=== PATIENT | male | born 1995 | race Caucasian/White ===

== ENCOUNTER 2018-12-03 20:25 | Emergency (ER) | payer OTHER ==
[~2018-12-03] VITALS: Ht 180.3 cm; Wt 62.1 kg
[~2018-12-03 20:25] MED LIST: MOBIC15 MG PO; TESSALON PERLE100 MG PO
[2018-12-03] MEDS ORDERED: DAY TIME SOFTG1 EACH PO (20:34)
[2018-12-03] MEDS ORDERED: PREDNISONE 20 M20 MG PO (21:45)
[2018-12-03] MEDS ORDERED: TESSALON PERLE100 MG PO (21:45)
[2018-12-04 02:21] VITALS: BP 132/67
== END 2018-12-03 21:35 | disposition home or self-care (01) ==
LOC: ER 20:25
DX: J40 Bronchitis, not specified as acute or chronic (principal); F17.210 Nicotine dependence, cigarettes, uncomplicated

== ENCOUNTER 2018-12-25 21:57 | Emergency (ER) | payer OTHER ==
[~2018-12-25] VITALS: Ht 180.3 cm; Wt 59.0 kg
[~2018-12-25 21:57] MED LIST changes: +DAY TIME SOFTG1 EACH PO; +PREDNISONE 20 M20 MG PO
[2018-12-25 21:58] VITALS: BP 123/65
[2018-12-25] MEDS ORDERED: NOHOMEMEDICATIONS (22:01)
[2018-12-25] MEDS ORDERED: MOBIC15 MG PO (23:31)
== END 2018-12-25 23:42 | disposition home or self-care (01) ==
LOC: ER 21:57
DX: R09.1 Pleurisy (principal); R07.89 Other chest pain; F17.210 Nicotine dependence, cigarettes, uncomplicated

== ENCOUNTER → 2019-01-25 | Outpatient (CLI) | payer OTHER ==
[~2019-01-25] MED LIST changes: +NOHOMEMEDICATIONS
== END ==
LOC: ULTRA 08:26
DX: R10.13 Epigastric pain (principal)

== ENCOUNTER 2019-11-28 19:52 | Emergency (ER) | payer OTHER ==
[~2019-11-28] VITALS: Ht 180.3 cm; Wt 78.5 kg
[2019-11-28 21:37] LABS: ABSOLUTE NEUTROPHILS 4.2 thou/uL (1.4-8.2); BASOPHILS 0.2 % (0.0-2.0); CALCIUM 9.2 mg/dL (8.5-10.1); CREATININE 1.1 mg/dL (0.7-1.3); EOSINOPHILS 0.1 % (0.0-3.0); HEMATOCRIT 43.8 % (42.0-52.0); HEMOGLOBIN 14.5 gm/dL (14.0-18.0); LYMPHOCYTES 12.4 % (24.0-44.0); MCH 28.6 pg (26.0-34.0); MCHC 33.1 g/dL (28.0-37.0); MCV 86.4 fL (80.0-100.0); MONOCYTES 10.2 % (1.0-8.0); PLATELET COUNT 161 thou/uL (150-400); POLYS 77.1 % (36.0-66.0); POTASSIUM 3.6 mmol/L (3.5-5.1); RBC 5.07 mil/uL (4.50-6.00); RDW 12.9 % (10.5-14.5); WBC 5.5 thou/uL (4.0-11.0)
[2019-11-28 21:48] LABS: ALBUMIN 4.6 g/dL (3.4-5.0); TOTAL BILIRUBIN 0.5 mg/dL (<0.1-1.0); TOTAL PROTEIN 8.9 g/dL (6.4-8.2)
[2019-11-28] MEDS ORDERED: TAMIFLU75 MG PO (22:50)
[2019-11-28 23:02] VITALS: BP 124/50
== END 2019-11-28 23:18 | disposition home or self-care (01) ==
LOC: ER 19:52
PROVIDERS: Emergency Medicine
DX: J11.1 Influenza due to unidentified influenza virus with other respiratory manifestations (principal); E86.0 Dehydration; F17.210 Nicotine dependence, cigarettes, uncomplicated

== ENCOUNTER 2020-07-19 17:58 | Emergency (ER) | payer OTHER ==
[~2020-07-19] VITALS: Ht 180.3 cm; Wt 62.6 kg
[~2020-07-19 17:58] MED LIST changes: +TAMIFLU75 MG PO
[2020-07-19] MEDS ORDERED: NOHOMEMEDICATIONS (18:06)
[2020-07-19] MEDS ORDERED: PROMETH-CODEIN 65 ML PO (20:00)
[2020-07-19 20:22] VITALS: BP 124/78
== END 2020-07-19 20:02 | disposition home or self-care (01) ==
LOC: ER 17:58
DX: R05 Cough (principal); M79.10 Myalgia, unspecified site; R42 Dizziness and giddiness; Z20.828 Contact with and (suspected) exposure to other viral communicable diseases; F17.210 Nicotine dependence, cigarettes, uncomplicated

== ENCOUNTER 2020-12-27 18:11 | Emergency (ER) | payer OTHER ==
[~2020-12-27] VITALS: Ht 180.3 cm; Wt 63.5 kg
[~2020-12-27 18:11] MED LIST changes: +PROMETH-CODEIN 65 ML PO
[2020-12-27 18:31] LABS: URINE BILIRUBIN NEGATIVE (Negative); URINE BLOOD NEGATIVE (Negative); URINE CLARITY CLEAR; URINE COLOR YELLOW; URINE GLUCOSE-RANDOM* NEGATIVE (Negative); URINE KETONES NEGATIVE (Negative); URINE LEUKOCYTES-REFLEX NEGATIVE (Negative); URINE NITRITE-REFLEX NEGATIVE (Negative); URINE PROTEIN (DIPSTICK) NEGATIVE (Negative); URINE SPECIFIC GRAVITY <= 1.005 (1.005-1.035); URINE UROBILINOGEN 0.2 E.U./dl (0.2-1.0)
[2020-12-27 18:42] LABS: HEMATOCRIT 41.4 % (42.0-52.0); HEMOGLOBIN 14.3 gm/dL (14.0-18.0); MCH 29.7 pg (26.0-34.0); MCHC 34.6 g/dL (28.0-37.0); RBC 4.81 mil/uL (4.50-6.00); RDW 12.8 % (10.5-14.5); WBC 4.4 thou/uL (4.0-11.0)
[2020-12-27 19:02] LABS: CALCIUM 9.5 mg/dL (8.5-10.1); CREATININE 0.9 mg/dL (0.7-1.3); POTASSIUM 3.9 mmol/L (3.5-5.1)
[2020-12-27 19:09] LABS: ALBUMIN 4.4 g/dL (3.4-5.0); TOTAL BILIRUBIN 0.2 mg/dL (0.2-1.0); TOTAL PROTEIN 7.9 g/dL (6.4-8.2)
[2020-12-27 20:00] VITALS: BP 123/61
== END 2020-12-27 20:00 | disposition home or self-care (01) ==
LOC: ER 18:11
PROVIDERS: Emergency Medicine
DX: R10.9 Unspecified abdominal pain (principal); F17.210 Nicotine dependence, cigarettes, uncomplicated

== ENCOUNTER 2021-03-08 16:40 | Emergency (ER) | payer OTHER ==
[~2021-03-08] VITALS: Ht 180.3 cm; Wt 80.3 kg
[2021-03-08 17:09] LABS: ABSOLUTE NEUTROPHILS 2.4 thou/uL (1.4-8.2); BASOPHILS 0.6 % (0.0-2.0); EOSINOPHILS 3.6 % (0.0-3.0); HEMATOCRIT 47.7 % (42.0-52.0); HEMOGLOBIN 16.2 gm/dL (14.0-18.0); LYMPHOCYTES 41.6 % (24.0-44.0); MCH 29.3 pg (26.0-34.0); MONOCYTES 6.7 % (1.0-8.0); PLATELET COUNT 323 thou/uL (150-400); POLYS 47.5 % (36.0-66.0); RBC 5.55 mil/uL (4.50-6.00); RDW 13.2 % (10.5-14.5); WBC 5.1 thou/uL (4.0-11.0)
[2021-03-08 17:10] LABS: ANION GAP 7 mmol/L (7-16); BUN 14 mg/dL (7-18); CALCIUM 9.8 mg/dL (8.5-10.1); CHLORIDE 103 mmol/L (98-107); CO2 31 mmol/L (21-32); CREATININE 1.2 mg/dL (0.7-1.3); GLUCOSE 78 mg/dL (74-106); POTASSIUM 3.9 mmol/L (3.5-5.1); SODIUM 141 mmol/L (136-145)
[2021-03-08 17:20] LABS: ALBUMIN 4.3 g/dL (3.4-5.0); LIPASE 137 U/L (73-393); SGOT 23 U/L (15-37); SGPT 37 U/L (16-63); TOTAL BILIRUBIN 0.5 mg/dL (0.2-1.0); TOTAL PROTEIN 8.2 g/dL (6.4-8.2); TROPONIN-I <0.06 ng/mL (<0.06)
[2021-03-08] MEDS ORDERED: OMEPRAZOLE 20 M20 M1 PO (17:32)
[2021-03-08 17:36] VITALS: BP 143/72
--- NOTE | 2021-03-09 12:07 | EKG ---
[address] [address] ELECTROCARDIOGRAM REPORT Name: NANCY TOLENTINO Room #: [facility]#: [id number] Admission: 03/08/21 Attend Phys: Discharge: 03/08/21 Date of : [birth year] Report #: [id number] [facility] ED Test Date: 2021-03-08 Test Time: 16:46:22 Pat Name: NANCY TOLENTINO Department: Room: Gender: Contracting Analyst: JUAN : 1995 Requested By: Bridger Csaillas Order Number: [id number] MD: Charlie Pettit Measurements Intervals [place] Rate: 100 P: 74 WV: 117 QRS: 52 QRSD: 88 T: 24 QT: 353 QTc: 456 Interpretive Statements Sinus tachycardia Probable left atrial enlargement Compared to ECG 05/10/2018 18:42:03 Sinus rhythm no longer present ST (T wave) deviation no longer present Electronically Signed On 03-09-2021 12:07:47 CDT by Charlie Pettit [email or web address] <ELECTRONICALLY SIGNED> By: Charlie Pettit MD 03/09/21 1207 45 45 Charlie Pettit MD /DENISE
== END 2021-03-08 17:36 | disposition home or self-care (01) ==
LOC: ER 16:40
PROVIDERS: Emergency Medicine
DX: R07.89 Other chest pain (principal); R42 Dizziness and giddiness; F17.210 Nicotine dependence, cigarettes, uncomplicated; Z87.442 Personal history of urinary calculi